=== PATIENT | female | born 1955 ===

== ENCOUNTER 2017-02-24 13:30 | Emergency (ER) | payer SELFPAY ==
--- NOTE | 2017-02-24 14:08 | EDM.PDOC ---
ED HPI GENERAL MEDICAL PROBLEM - General Chief Complaint: Eye Problems Stated Complaint: RT EYE HURTS Time Seen by Provider: 02/24/17 14:03 Source of Information: Reports: Patient History Limitations: Reports: No Limitations - History of Present Illness INITIAL COMMENTS - FREE TEXT/NARRATIVE: History of present illness: [61-year-old female coming in with complaints of right eye pain and redness.] Review of systems: As per history of present illness and below otherwise all systems reviewed and negative. Past medical history: As per history of present illness and as reviewed below otherwise noncontributory. Surgical history: As per history of present illness and as reviewed below otherwise noncontributory. Social history: No reported history of drug or alcohol abuse. Family history: As per history of present illness and as reviewed below otherwise noncontributory. Physical exam: HEENT: Atraumatic, normocephalic, pupils reactive, negative for conjunctival pallor or scleral icterus, mucous membranes moist, throat clear, neck supple, nontender, trachea midline. Lungs: Clear to auscultation, breath sounds equal bilaterally, chest nontender. Heart: S1S2, regular, negative for clicks, rubs, or JVD. Abdomen: Soft, nondistended, nontender. Negative for masses or hepatosplenomegaly. Negative for costovertebral tenderness. Pelvis: Stable nontender. Genitourinary: Deferred. Rectal: Deferred. Extremities: Atraumatic, negative for cords or calf pain. Neurovascular unremarkable. Neuro: Awake, alert, oriented. Cranial nerves II through XII unremarkable. Cerebellum unremarkable. Motor and sensory unremarkable throughout. Exam nonfocal. Patient is a hairdresser and thinks that she might have gotten a pair blown into her eye she has rinsed her eye at home but now it is irritated. Diagnostics: [] Therapeutics: [] Impression: [Conjunctivitis Cellulitis of the eyelid] Plan: [Take medication] Definitive disposition and diagnosis as appropriate pending reevaluation and review of above. right eye Pain Score (Numeric/FACES): 5 - Related Data Allergies Allergy/AdvReac Type Severity Reaction Status Date / Time No Known Allergies Allergy Verified 02/24/17 13:45 Home Meds: Home Meds Levothyroxine 02/24/17 [History] Tobramycin 0.3% [Tobramycin 0.3% Ophth Soln] 5 ml EYERT Q4H #1 bottle 02/24/17 [ Rx] Past Medical History Endocrine/Metabolic History: Reports: Hypothyroidism - Past Surgical History Female Surgical History: Reports: Other (See Below) Other Female Surgeries/Procedures: liver biopsy Musculoskeletal Surgical History: Reports: Carpal Tunnel Social & Family History - Family History Family Medical History: Noncontributory - Tobacco Use Smoking Status *Q: Never Smoker - Recreational Drug Use Recreational Drug Use: No ED ROS GENERAL - Review of Systems Review Of Systems: See Below (History of present illness) ED EXAM GENERAL W FULL EYE - Physical Exam Exam: See Below (History of present illness) Course - Vital Signs Last Recorded V/S: Last Vital Signs Temp 36.6 C 02/24/17 13:45 Pulse 87 02/24/17 13:45 Resp 18 02/24/17 13:45 BP 128/75 02/24/17 13:45 Pulse Ox 95 02/24/17 13:45 Departure - Departure Time of Disposition: 14:07 Disposition: Home, Self-Care 01 Condition: Good Clinical Impression: Conjunctivitis - Discharge Information Prescriptions: Tobramycin 0.3% [Tobramycin 0.3% Ophth Soln] 5 ml EYERT Q4H #1 bottle Instructions: Bacterial Conjunctivitis, [id number] Referrals: PCP,None [Primary Care Provider] - Additional Instructions: The following information is given to patients seen in the emergency department who are being discharged to home. This information is to outline your options for follow-up care. We provide all patients seen in our emergency department with a follow-up referral. The need for follow-up, as well as the timing and circumstances, are variable depending upon the specifics of your emergency department visit. If you don't have a primary care physician on staff, we will provide you with a referral. We always advise you to contact your personal physician following an emergency department visit to inform them of the circumstance of the visit and for follow-up with them and/or the need for any referrals to a consulting specialist. The emergency department will also refer you to a specialist when appropriate. This referral assures that you have the opportunity for follow-up care with a specialist. All of these measure are taken in an effort to provide you with optimal care, which includes your follow-up. Under all circumstances we always encourage you to contact your private physician who remains a resource for coordinating your care. When calling for follow-up care, please make the office aware that this follow-up is from your recent emergency room visit. If for any reason you are refused follow-up, please contact the Emergency Department at and asked to speak to the emergency department charge nurse. Take medication as directed Follow-up with ophthalmology when necessary Return to ED as needed as discussed
== END 2017-02-24 14:21 | disposition home or self-care (01) ==
LOC: MW.ED 13:30
DX: H00.033 Abscess of eyelid right eye, unspecified eyelid (principal); H10.9 Unspecified conjunctivitis
CPT/HCPCS: 99282; 99283